=== PATIENT | male | born 1975 | race Caucasian/White ===

== ENCOUNTER 2018-09-18 00:17 | Inpatient (IN) | payer MEDICAID ==
[~2018-09-18] VITALS: Ht 170.2 cm; Wt 100.1 kg
[2018-09-18] VITALS (33 sets, daily range): BP systolic 100–126; BP diastolic 50–84; PULSE 100–136; RESP 16–26; Ht 170.2 cm; Wt 100.1 kg
[~2018-09-18 00:17] MED LIST: BENZ-6 PO; GUAI120S26 PO
[2018-09-18] MEDS ORDERED: SODIUM CHLORIDE 0.9% 1L BAG IV* STA (00:27)
[2018-09-18] MEDS ORDERED: ACETAMINOPHEN 325 MG TAB PO STA (00:27)
[2018-09-18] MEDS ORDERED: CEFEPIME 2GM/50 ML (PMX) 50 ML IVPB STA (01:36)
[2018-09-18] MEDS ORDERED: VANCOMYCIN 1 GM (PMX) 250 ML IVPB ONE (02:00)
[2018-09-18] MEDS ORDERED: ONDANSETRON 4 MG INJ IV STA (02:27)
[2018-09-18] MEDS ORDERED: morphine 4 MG/ML VIAL IV STA (02:27)
--- NOTE | 2018-09-18 03:22 | ERD ---
ER Documentation Chief Complaint Chief Complaint nausea with vomiting x 30 min HPI This is a 43-year-old male coming with nausea vomiting and right lower quadrant abdominal pain sudden onset for 30 minutes. Pain is mild to moderate intensity. He also complains of fevers and chills. One episode of vomiting which is nonbilious nonbloody. No other current complaints. ROS All systems reviewed and are negative except as per history of present illness. Medications Home Meds Active Scripts Benzonatate* (Tessalon Perle*) 100 Mg Capsule, 100 MG PO Q8H PRN for COUGH, #20 CAP Prov:NASIM MIGUEL PA-C 07/08/16 Kqvvkitkzbb-N-Ezzgtzyixv Hb* (Guaifenesin* DM Syrup) 120 Ml Syrup, 10 ML PO Q4H PRN for COUGH, #120 ML Prov:NASIM MIGUEL PA-C 07/08/16 Allergies Allergies: Coded Allergies: No Known Allergy (Unverified , 07/07/16) PMhx/Soc Medical and Surgical Hx: pt denies Medical Hx, pt denies Surgical Hx Hx Alcohol Use: No Hx Substance Use: No Hx Tobacco Use: No Smoking Status: Never smoker Physical Exam Vitals Vital Signs Date Temp Pulse Resp B/P (MAP) Pulse Ox O2 O2 Flow FiO2 Time Delivery Rate 09/18/18 98.9 124 25 117/72 95 Room Air 02:58 (87) 09/18/18 98.9 125 20 124/67 95 Room Air 01:48 (86) 09/18/18 98.9 143 28 127/83 95 Room Air 00:53 (98) 09/18/18 39.6 00:52 09/18/18 103.3 131 18 161/83 98 00:21 (109) Physical Exam Const: No acute distress Head: Atraumatic Eyes: Normal Conjunctiva ENT: Normal External Ears, Nose and Mouth. Neck: Full range of motion. No meningismus. Resp: Clear to auscultation bilaterally Cardio: Regular rate and rhythm, no murmurs Abd: Soft, non tender, non distended. Normal bowel sounds Skin: No petechiae or rashes Back: No midline or flank tenderness Ext: No cyanosis, or edema Neur: Awake and alert Psych: Normal Mood and Affect Result Diagram: 09/18/184809/18/1848 Results 24 hrs Laboratory Tests Test 09/18/18 00:48 09/18/18 00:49 Urine Color YELLOW Urine Clarity CLEAR Urine pH 5.0 Urine Specific [place] 1.037 Urine Ketones TRACE mg/dL Urine Nitrite NEGATIVE mg/dL Urine Bilirubin NEGATIVE mg/dL Urine Urobilinogen NEGATIVE mg/dL Urine Leukocyte Esterase NEGATIVE Kashif/ul Urine Hemoglobin NEGATIVE mg/dL Urine Glucose 3+ mg/dL Urine Total Protein NEGATIVE mg/dl White Blood Count 5.6 10^3/ul Red Blood Count 5.32 10^6/ul Hemoglobin 15.7 g/dl Hematocrit 45.1 % Mean Corpuscular Volume 84.8 fl Mean Corpuscular Hemoglobin 29.5 pg Mean Corpuscular Hemoglobin Concent 34.8 g/dl Red Cell Distribution Width 12.5 % Platelet Count 273 10^3/UL Mean Platelet Volume 9.1 fl Immature Granulocytes % 0.200 % Neutrophils % 80.4 % Lymphocytes % 18.3 % Monocytes % 0.4 % Eosinophils % 0.2 % Basophils % 0.5 % Nucleated Red Blood Cells % 0.0 /100WBC Immature Granulocytes # 0.010 10^3/ul Neutrophils # 4.5 10^3/ul Lymphocytes # 1.0 10^3/ul Monocytes # 0.0 10^3/ul Eosinophils # 0.0 10^3/ul Basophils # 0.0 10^3/ul Nucleated Red Blood Cells # 0.0 10^3/ul Prothrombin Time 13.4 Sec Prothrombin Time Ratio 1.0 INR International Normalized Ratio 1.01 Activated Partial Thromboplast Time 26.6 Sec Sodium Level 141 mmol/L Potassium Level 3.6 mmol/L Chloride Level 99 mmol/L Carbon Dioxide Level 26 mmol/L Anion Gap 16 Blood Urea Nitrogen 14 mg/dl Creatinine 0.95 mg/dl Est Glomerular Filtrat Rate mL/min > 60 mL/min Glucose Level 300 mg/dl Lactic Acid Level 4.7 mmol/L Calcium Level 9.5 mg/dl Total Bilirubin 0.7 mg/dl Direct Bilirubin 0.00 mg/dl Indirect Bilirubin 0.7 mg/dl Aspartate Amino Transf (AST/SGOT) 23 IU/L Alanine Aminotransferase (ALT/SGPT) 29 IU/L Alkaline Phosphatase 112 IU/L Troponin I < 0.012 ng/ml Total Protein 8.6 g/dl Albumin 4.6 g/dl Globulin 4.00 g/dl Albumin/Globulin Ratio 1.15 Lipase 65 U/L Current Medications Medications Dose Sig/Jody Start Time Status Last (Trade) Ordered Route PRN Stop Time Admin Dose Reason Admin Sodium 2,980 ml BOLUS OVER 2 09/18/18 DC 09/18/18 Chloride HOURS STAT 00:27 09/18/18 00:53 (NS) IV* 00:28 650 mg ONCE STAT 09/18/18 DC 09/18/18 Acetaminophen PO 00:27 09/18/18 00:52 (Tylenol 00:28 Tab) Cefepime HCl 50 ml @ ONCE STAT 09/18/18 DC 09/18/18 100 mls/hr IVPB 01:36 09/18/18 01:43 02:05 Vancomycin 250 ml @ ONCE ONCE 09/18/18 09/18/18 HCl 125 mls/hr IVPB 02:00 09/18/18 02:02 03:59 Morphine 4 mg ONCE STAT 09/18/18 DC 09/18/18 Sulfate IV 02:27 09/18/18 02:38 (morphine) 02:28 Ondansetron 4 mg ONCE STAT 09/18/18 DC 09/18/18 HCl (Zofran IV 02:27 09/18/18 02:37 Inj) 02:28 Procedures/MDM EKG: Rate/Rhythm: Is tachycardia QRS, ST, T-waves: [No changes consistent w/ acute ischemia] Impression: Sinus tachycardia Chest X-ray 1V Interpreted by me: Soft Tissue: No acute abnormalities Bones: No acute abnormalities Mediastinum/Cardiac Silhouette/Lungs: [No acute abnormalities] Patient's infectious symptoms have not stabilized and the patient is at risk of rapid decompensation. The patient will be admitted for careful hydration, antibiotic therapy, and infectious source control. Severe Sepsis Assessment: Infectious Source: Appendicitis End organ damage indicated by: [Lactate > 2.0 mmol/L Severe Sepsis Managment: Blood Cultures X 2 before broad spectrum antibiotics initiated within 3 hours of recognition. 30 ml/kg NS bolus Completed Initial Lactate: 4.1 Repeat Lactate pending Critical Care: Time: 45 minutes, independent of any separately billable procedural time Treatments/Evaluations: Emergent fluid management, while maintaining close respiratory support. Immediate broad spectrum antibiotic therapy. Simultaneous assessment for possible sources in order to direct therapy. Consideration for invasive and chemical support to prevent respiratory or cardiac collapse. Septic Shock Assessment (1 hour post 30 ml/kg fluid bolus): Hypotension (SBP < 90 or 40 mmHg drop, MAP < 65): [No] Lactic acid > 4.0 yes Perfusion Reassessment for Septic Shock: 99.3, pulse 117, respiratory rate 18, blood pressure 116/74 Heart Exam: [Tachycardic] Lung Exam: [No Crackles] Capillary Refill: [Delayed] Peripheral Pulses: [Radially present] Skin: [Mottled, pale] Patient also has evidence of hyperglycemia, the patient does not follow regularly with a physician. This calls into question whether it has lactic acidosis is also somewhat secondary to his severe hyperglycemia, however patient started on broad-spectrum antibiotics and given a 30/kg fluid bolus here in the department. Admitting team made aware. Dr. Schaefer consulted for surgery. Accepting Care Team: Current data and ongoing care discussed. Time: 2 AM Primary Provider: Hospitalist Consulting: Dr. Schaefer Outstanding Data: none Departure Diagnosis: Primary Impression: Nausea and vomiting Vomiting type: unspecified Vomiting Intractability: unspecified Qualified Codes: R11.2 - Nausea with vomiting, unspecified Additional Impressions: Sepsis Sepsis type: sepsis due to unspecified organism Qualified Codes: A41.9 - Sepsis, unspecified organism Appendicitis Appendicitis type: unspecified Qualified Codes: K37 - Unspecified samy endicitis Hyperglycemia Condition: Serious TENA HAGEN Sep 18, 2018 03:22
[2018-09-18] MEDS ORDERED: SOD CHLORIDE 0.9% 1,000 ML IV ONE ×3 (03:30→08:30)
[2018-09-18] MEDS ORDERED: HYDROmorphONE 0.5 MG/0.5 ML SYG IV STA (05:17)
[2018-09-18] MEDS ORDERED: ALBUTEROL/IPRATROPIUM (NEB) 3 ML AMP HHN PRN (06:30)
[2018-09-18] MEDS ORDERED: ONDANSETRON 4 MG INJ IV PRN ×3 (06:30→14:30)
[2018-09-18] MEDS ORDERED: NACL 0.9% 3 ML SYG IV SCH (06:30)
[2018-09-18] MEDS ORDERED: morphine 2 MG INJ IV PRN ×2 (06:30→14:00)
--- NOTE | 2018-09-18 06:30 | HP ---
Date/Time of Note Date/Time of Note DATE: 09/18/18 TIME: 06:28 Assessment/Plan VTE Prophylaxis SCD applied (from Nsg): Yes Pharmacological prophylaxis: NA/contraindicated Pharm contraindication: other (Awaiting surgical evaluation for appendicitis) Lines/Catheters IV Catheter Type (from Nrsg): Saline Lock Assessment/Plan Assessment/Plan 1. Acute appendicitis -Keep n.p.o. with IV fluid -IV antibiotic -Pain management -Awaiting surgical eval 2. sepsis: 2/2 above -IV abx, IVF -f/u culture results 3. Hyperglycemia: Likely new onset diabetes -Check A1c -Insulin while in-house 4. Obesity with a BMI of 34: Weight reduction advised Result Diagram: 09/18/189 09/18/189 Results 24hrs Laboratory Tests Test 09/18/18 00:48 09/18/18 00:49 09/18/18 03:00 09/18/18 04:47 Urine Color YELLOW Urine Clarity CLEAR Urine pH 5.0 Urine Specific [place] 1.037 H Urine Ketones TRACE A Urine Nitrite NEGATIVE Urine Bilirubin NEGATIVE Urine Urobilinogen NEGATIVE Urine Leukocyte Esterase NEGATIVE Urine Hemoglobin NEGATIVE Urine Glucose 3+ H Urine Total Protein NEGATIVE White Blood Count 5.6 Red Blood Count 5.32 Hemoglobin 15.7 Hematocrit 45.1 Mean Corpuscular Volume 84.8 Mean Corpuscular 29.5 Hemoglobin Mean Corpuscular 34.8 Hemoglobin Concent Red Cell Distribution 12.5 Width Platelet Count 273 Mean Platelet Volume 9.1 Immature Granulocytes % 0.200 Neutrophils % 80.4 H Lymphocytes % 18.3 Monocytes % 0.4 Eosinophils % 0.2 Basophils % 0.5 Nucleated Red Blood 0.0 Cells % Immature Granulocytes # 0.010 Neutrophils # 4.5 Lymphocytes # 1.0 Monocytes # 0.0 L Eosinophils # 0.0 Basophils # 0.0 Nucleated Red Blood 0.0 Cells # Prothrombin Time 13.4 Prothrombin Time Ratio 1.0 INR International 1.01 Normalized Ratio Activated 26.6 Partial Thromboplast Time Sodium Level 141 Potassium Level 3.6 Chloride Level 99 Carbon Dioxide Level 26 Anion Gap 16 H Blood Urea Nitrogen 14 Creatinine 0.95 Est Glomerular Filtrat > 60 Rate mL/min Glucose Level 300 H Lactic Acid Level 4.7 *H 2.7 *H 1.7 Calcium Level 9.5 Total Bilirubin 0.7 Direct Bilirubin 0.00 Indirect Bilirubin 0.7 Aspartate Amino 23 Transf (AST/SGOT) Alanine 29 Aminotransferase (ALT/SG PT) Alkaline Phosphatase 112 Troponin I < 0.012 Total Protein 8.6 H Albumin 4.6 Globulin 4.00 H Albumin/Globulin Ratio 1.15 Lipase 65 HPI/ROS Admit Date/Time Admit Date/Time Hx of Present Illness This is a 43-year-old male with no significant past medical history who presents to the ER complaining of abdominal pain. Pain is mainly localized in the right lower quadrant area with associated nausea and nonbloody nonbilious vomiting. Pain started about 7 hours prior to arrival to the ER. Denied similar symptoms in the past. When he presented to the ER, CT abdomen/pelvis with the findings of acute appendicitis. PMH/Family/Social Past Medical History Medical History: other (See HPI) Medications Current Medications Sodium Chloride 1,000 ml @ 1,000 mls/hr Q1H ONCE IV Last administered on 09/18/18at 05:21; Admin Dose 1,000 MLS/HR; Start 09/18/18 at 05:30; Stop 09/18/18 at 06:29 Coded Allergies: No Known Allergy (Unverified , 09/18/18) Past Surgical History Past Surgical Hx: other (See HPI) Family History Significant Family History: no pertinent family hx Social History Alcohol Use: occasionally Smoking Status: Never smoker Drug Use: none Exam/Review of Systems Vital Signs Vitals Vital Signs Date Temp Pulse Resp B/P (MAP) Pulse Ox O2 O2 Flow FiO2 Time Delivery Rate 09/18/18 98.7 128 21 111/64 95 Room Air 06:10 (80) Exam Constitutional: other (No acute distress) Head: normocephalic, atraumatic Eyes: EOMI, PERRL Respiratory: clear to auscultation, normal air movement Cardiovascular: regular rate and rhythm, nl pulses Gastrointestinal: soft, other (Right lower quadrant tenderness. Some guarding with deep palpation. No rigidity, no rebound tenderness) Extremities: normal pulses TENA MARIE MD Sep 18, 2018 06:30
[2018-09-18] MEDS ORDERED: NEOSTIGMINE 10 MG INJ ONE (07:00)
[2018-09-18] MEDS ORDERED: DEXTROSE 50% 50 ML SYRINGE IV PRN ×2 (07:00)
[2018-09-18] MEDS ORDERED: GLUCOSE GEL 15 GRAM TUBE PO PRN ×2 (07:00)
[2018-09-18] MEDS ORDERED: LIDOCAINE 2% (SDV) 5 ML INJ ONE (07:00)
[2018-09-18] MEDS ORDERED: GLUCOSE GEL 15 GRAM TUBE BUCCAL PRN (07:00)
[2018-09-18] MEDS ORDERED: GLUCAGON 1 MG INJ IM PRN (07:00)
[2018-09-18] MEDS ORDERED: GLYCOPYRROLATE 0.4 MG INJ ONE (07:00)
[2018-09-18] MEDS: PIPER-TAZO 3.375 GM IV (PMX) 100 ML IVPB SCH ×5 (07:20→16:28)
[2018-09-18] MEDS ORDERED: IBUP200C11 PO (07:35)
[2018-09-18] MEDS: DEXTROSE 5%-0.45% NACL 1,000 ML IV SCH ×2 (09:28→14:58)
[2018-09-18] MEDS: INSULIN ASPART [NOVOLOG] 3 ML PEN SC SCH ×4 (09:31→21:25)
[2018-09-18] MEDS: INSULIN DETEMIR [LEVEMIR] (100 UNITS/ML) SYG SC SCH (09:31)
--- NOTE | 2018-09-18 11:49 | QN ---
Documentation Comment 43-year-old male with no past medical history, admitted with acute appendicitis. Patient is going to OR for lap versus open appendectomy. Postoperative diet, anticoagulation, antibiotic course per surgery recommendations. The patient will be treated with insulin for underlying hyperglycemia, likely secondary to sepsis versus new onset diabetes which we will rule out. Case discussed with Dr. Alba. KORIN JAMES NP Sep 18, 2018 11:49
--- NOTE | 2018-09-18 11:59 | PREAC ---
Date/Time of Note Date/Time of Note DATE: 09/18/18 TIME: 11:56 Anesthesia Eval and Record Evaluation Time Pre-Procedure Interview DATE: 09/18/18 TIME: 11:56 Age 43 Sex male NPO: 8 hrs Preoperative diagnosis Appendicitis Planned procedure Lap Appy Past Medical History Past Medical History: Includes Endo: Diabetes (266, 931 4 unit regular insulin) GI: Obesity Surgery & Anesthesia Issues No known issue (no family history) Meds Anticoagulation: No Beta Herminio within 24 hr: No Reason Beta Herminio not given: Pt. not on B-Herminio Reported Medications Ibuprofen* (Advil*) 200 Mg Capsule, 200 MG PO Q6H PRN for PAIN, CAP 09/18/18 Discontinued Scripts Benzonatate* (Tessalon Perle*) 100 Mg Capsule, 100 MG PO Q8H PRN for COUGH, #20 CAP Prov:NASIM MIGUEL PA-C 07/08/16 Ftwbrlxoqfx-Q-Axkaqjtlfu Hb* (Guaifenesin* DM Syrup) 120 Ml Syrup, 10 ML PO Q4H PRN for COUGH, #120 ML Prov:NASIM MIGUEL PA-C 07/08/16 Current Medications Dextrose/Sodium Chloride 1,000 ml @ 100 mls/hr Q10H IV Last administered on 09/18/18at 09:28; Admin Dose 100 MLS/HR; Start 09/18/18 at 06:24 IV Flush (NS 3 ml) 3 ml PER PROTOCOL IV ; Start 09/18/18 at 06:30 Ondansetron HCl (Zofran Inj) 4 mg Q6H PRN IV NAUSEA/VOMITING Last administered on 09/18/18at 09:30; Admin Dose 4 MG; Start 09/18/18 at 06:30 Morphine Sulfate (morphine) 2 mg Q4H PRN IV .SEVERE PAIN 7-10; Start 09/18/18 at 06:30 Albuterol/ Ipratropium (Duoneb) 3 ml Q2H RESP THERAPY PRN HHN SHORTNESS OF BREATH; Start 09/18/18 at 06:30 Diagnostic Test (Pha) (Accu-Chek) 1 ea 02 XX ; Start 09/19/18 at 02:00 Insulin Detemir (Levemir) 12 units DAILY@0800 SC Last administered on 09/18/18at 09:31; Admin Dose 12 UNITS; Start 09/18/18 at 08:00 Insulin Aspart (Novolog Insulin Pen) NOVOLOG *MILD* ALGORITHM WITH MEALS BEDTIME SC Last administered on 09/18/18at 09:31; Admin Dose 4 UNIT; Start 09/18/18 at 07:55 Piperacillin Sod/ Tazobactam Sod 100 ml @ 200 mls/hr Q6H IVPB Last administered on 09/18/18at 07:20; Admin Dose 200 MLS/HR; Start 09/18/18 at 06:30 Miscellaneous Information 1 ea NOTE XX ; Start 09/18/18 at 07:00 Glucose (Glutose) 15 gm Q15M PRN PO DECREASED GLUCOSE; Start 09/18/18 at 07:00 Glucose (Glutose) 22.5 gm Q15M PRN PO DECREASED GLUCOSE; Start 09/18/18 at 07:00 Dextrose (D50w Syringe) 25 ml Q15M PRN IV DECREASED GLUCOSE; Start 09/18/18 at 07:00 Dextrose (D50w Syringe) 50 ml Q15M PRN IV DECREASED GLUCOSE; Start 09/18/18 at 07:00 Glucagon (Glucagen) 1 mg Q15M PRN IM DECREASED GLUCOSE; Start 09/18/18 at 07:00 Glucose (Glutose) 15 gm Q15M PRN BUCCAL DECREASED GLUCOSE; Start 09/18/18 at 07:00 Influenza Virus Vaccine Quadrival (Fluzone) 0.5 ml ONCE ONCE IM* ; Start 09/19/18 at 10:00; Stop 09/19/18 at 10:01 Meds reviewed: Yes Allergies Coded Allergies: No Known Allergy (Unverified , 09/18/18) Allergies Reviewed: No Labs/Studies Labs Reviewed: Reviewed by anesthesiologist Result Diagram: 09/18/18 0049 09/18/18 0049 Laboratory Tests 09/18/18 00:49 test: N/A Pre-procedure Exam Last vitals Vital Signs Date Temp Pulse Resp B/P (MAP) Pulse Ox O2 O2 Flow FiO2 Time Delivery Rate 09/18/18 98.0 117 18 121/68 97 11:17 (85) 09/18/18 Nasal 2.0 08:20 Cannula Airway: Adequate mouth opening, Adequate thyromental dist Mallampati: Mallampati III Teeth: Abnormal (multiple small chips on top teeth) Lung: Normal Heart: Normal ASA Physical Status ASA physical status: 2 Emergency: E Planned Anesthetic General/MAC: ETT Pre-operative Attestations Prior to commencing anesthesia and surgery, the patient was re-evaluated, there was verification of: *The patient's identity *The results of appropriate recent lab work and preoperative vital signs *The above evaluation not changing prior to induction *Anesthetic plan, risk benefits, alternative and complications discussed with patient/family; questions answered; patient/family understands, accepts and wishes to proceed. JIMMY KYLE FOREIGN COLLECTION CLERK Sep 18, 2018 11:59
--- NOTE | 2018-09-18 12:08 | CONS ---
Assessment/Plan Assessment/Plan Assessment/Plan (Daily) Acute appendicitis Plan: Laparoscopic appendectomy, possible open. I have discussed the procedure, outcomes alternatives and risks in detail with the patient who has an excellent understanding of the nature of his problem and agrees to the proposed plan of therapy as outlined. Consultation Date/Type/Reason Admit Date/Time Date of Consultation: Sep 18, 2018 Type of Consult General surgery Reason for Consultation Acute appendicitis Date/Time of Note DATE: 09/18/18 TIME: 12:05 Hx of Present Illness The patient is an otherwise healthy 43-year-old male who presents with a one day history of abdominal pain which intensified in severity than localized to the right lower quadrant. In the emergency room he was noted to have a tender right lower quadrant and a CT compatible with acute appendicitis. The patient was admitted and surgical consultation was requested in that regard. Of note is the fact that the patient was noted to have an elevated glucose and may have early onset diabetes. The patient has had no fevers, chills or systemic symptoms. Constitutional: no complaints Eyes: no complaints ENT: no complaints Respiratory: no complaints Cardiovascular: no complaints Gastrointestinal: pain, nausea Genitourinary: no complaints Musculoskeletal: no complaints Skin: no complaints Neurologic: no complaints, dizziness Endocrine: no complaints Past Medical History Medical History: other (See HPI) Home Meds Reported Medications Ibuprofen* (Advil*) 200 Mg Capsule, 200 MG PO Q6H PRN for PAIN, CAP 09/18/18 Discontinued Scripts Benzonatate* (Tessalon Perle*) 100 Mg Capsule, 100 MG PO Q8H PRN for COUGH, #20 CAP Prov:NASIM MIGUEL PA-C 07/08/16 Nhhipokasam-C-Zbjeljsimn Hb* (Guaifenesin* DM Syrup) 120 Ml Syrup, 10 ML PO Q4H PRN for COUGH, #120 ML Prov:NASIM MIGUEL PA-C 07/08/16 Medications Current Medications Dextrose/Sodium Chloride 1,000 ml @ 100 mls/hr Q10H IV Last administered on 09/18/18at 09:28; Admin Dose 100 MLS/HR; Start 09/18/18 at 06:24 IV Flush (NS 3 ml) 3 ml PER PROTOCOL IV ; Start 09/18/18 at 06:30 Ondansetron HCl (Zofran Inj) 4 mg Q6H PRN IV NAUSEA/VOMITING Last administered on 09/18/18at 09:30; Admin Dose 4 MG; Start 09/18/18 at 06:30 Morphine Sulfate (morphine) 2 mg Q4H PRN IV .SEVERE PAIN 7-10; Start 09/18/18 at 06:30 Albuterol/ Ipratropium (Duoneb) 3 ml Q2H RESP THERAPY PRN HHN SHORTNESS OF BREATH; Start 09/18/18 at 06:30 Diagnostic Test (Pha) (Accu-Chek) 1 ea 02 XX ; Start 09/19/18 at 02:00 Insulin Detemir (Levemir) 12 units DAILY@0800 SC Last administered on 09/18/18at 09:31; Admin Dose 12 UNITS; Start 09/18/18 at 08:00 Insulin Aspart (Novolog Insulin Pen) NOVOLOG *MILD* ALGORITHM WITH MEALS BEDTIME SC Last administered on 09/18/18at 09:31; Admin Dose 4 UNIT; Start 09/18/18 at 07:55 Piperacillin Sod/ Tazobactam Sod 100 ml @ 200 mls/hr Q6H IVPB Last administered on 09/18/18at 07:20; Admin Dose 200 MLS/HR; Start 09/18/18 at 06:30 Miscellaneous Information 1 ea NOTE XX ; Start 09/18/18 at 07:00 Glucose (Glutose) 15 gm Q15M PRN PO DECREASED GLUCOSE; Start 09/18/18 at 07:00 Glucose (Glutose) 22.5 gm Q15M PRN PO DECREASED GLUCOSE; Start 09/18/18 at 07:00 Dextrose (D50w Syringe) 25 ml Q15M PRN IV DECREASED GLUCOSE; Start 09/18/18 at 07:00 Dextrose (D50w Syringe) 50 ml Q15M PRN IV DECREASED GLUCOSE; Start 09/18/18 at 07:00 Glucagon (Glucagen) 1 mg Q15M PRN IM DECREASED GLUCOSE; Start 09/18/18 at 07:00 Glucose (Glutose) 15 gm Q15M PRN BUCCAL DECREASED GLUCOSE; Start 09/18/18 at 07:00 Influenza Virus Vaccine Quadrival (Fluzone) 0.5 ml ONCE ONCE IM* ; Start 09/19/18 at 10:00; Stop 09/19/18 at 10:01 Allergies: Coded Allergies: No Known Allergy (Unverified , 09/18/18) Past Surgical History Past Surgical Hx: other (See HPI) Family History Significant Family History: no pertinent family hx Social History Alcohol Use: occasionally Smoking Status: Never smoker Drug Use: none Exam/Review of Systems Exam Vitals Vital Signs Date Temp Pulse Resp B/P (MAP) Pulse Ox O2 O2 Flow FiO2 Time Delivery Rate 09/18/18 Nasal 2.0 11:49 Cannula 09/18/18 98.0 117 18 121/68 97 11:17 (85) Constitutional: alert, oriented, other (Speaks only [place]) Psych: no complaints Head: normocephalic Eyes: nl conjunctiva ENMT: nl external ears & nose Neck: supple Respiratory: clear to auscultation, crackles/rales Gastrointestinal: tender (The right lower quadrant with slight guarding but no rebound) Musculoskeletal: nl extremities to inspection Extremities: normal pulses Neurological: CORK TIPPER II-XII intact Skin: nl turgor Results Result Diagram: 09/18/18 0049 09/18/18 0049 Results 24hrs Laboratory Tests Test 09/18/18 00:48 09/18/18 00:49 09/18/18 03:00 09/18/18 04:47 Urine Color YELLOW Urine Clarity CLEAR Urine pH 5.0 Urine Specific [place] 1.037 H Urine Ketones TRACE A Urine Nitrite NEGATIVE Urine Bilirubin NEGATIVE Urine Urobilinogen NEGATIVE Urine Leukocyte Esterase NEGATIVE Urine Hemoglobin NEGATIVE Urine Glucose 3+ H Urine Total Protein NEGATIVE White Blood Count 5.6 Red Blood Count 5.32 Hemoglobin 15.7 Hematocrit 45.1 Mean Corpuscular Volume 84.8 Mean Corpuscular 29.5 Hemoglobin Mean Corpuscular 34.8 Hemoglobin Concent Red Cell Distribution 12.5 Width Platelet Count 273 Mean Platelet Volume 9.1 Immature Granulocytes % 0.200 Neutrophils % 80.4 H Lymphocytes % 18.3 Monocytes % 0.4 Eosinophils % 0.2 Basophils % 0.5 Nucleated Red Blood 0.0 Cells % Immature Granulocytes # 0.010 Neutrophils # 4.5 Lymphocytes # 1.0 Monocytes # 0.0 L Eosinophils # 0.0 Basophils # 0.0 Nucleated Red Blood 0.0 Cells # Prothrombin Time 13.4 Prothrombin Time Ratio 1.0 INR International 1.01 Normalized Ratio Activated 26.6 Partial Thromboplast Time Sodium Level 141 Potassium Level 3.6 Chloride Level 99 Carbon Dioxide Level 26 Anion Gap 16 H Blood Urea Nitrogen 14 Creatinine 0.95 Est Glomerular Filtrat > 60 Rate mL/min Glucose Level 300 H Lactic Acid Level 4.7 *H 2.7 *H 1.7 Calcium Level 9.5 Total Bilirubin 0.7 Direct Bilirubin 0.00 Indirect Bilirubin 0.7 Aspartate Amino 23 Transf (AST/SGOT) Alanine 29 Aminotransferase (ALT/SG PT) Alkaline Phosphatase 112 Troponin I < 0.012 Total Protein 8.6 H Albumin 4.6 Globulin 4.00 H Albumin/Globulin Ratio 1.15 Lipase 65 Test 09/18/18 09:23 09/18/18 11:59 Bedside Glucose 266 H 246 H Medications Medication Current Medications Dextrose/Sodium Chloride 1,000 ml @ 100 mls/hr Q10H IV Last administered on 09/18/18 09:28; Admin Dose 100 MLS/HR; Start 09/18/18 at 06:24 IV Flush (NS 3 ml) 3 ml PER PROTOCOL IV ; Start 09/18/18 at 06:30 Ondansetron HCl (Zofran Inj) 4 mg Q6H PRN IV NAUSEA/VOMITING Last administered on 09/18/18 09:30; Admin Dose 4 MG; Start 09/18/18 at 06:30 Morphine Sulfate (morphine) 2 mg Q4H PRN IV .SEVERE PAIN 7-10; Start 09/18/18 at 06:30 Albuterol/ Ipratropium (Duoneb) 3 ml Q2H RESP THERAPY PRN HHN SHORTNESS OF BREATH; Start 09/18/18 at 06:30 Diagnostic Test (Pha) (Accu-Chek) 1 ea 02 XX ; Start 09/19/18 at 02:00 Insulin Detemir (Levemir) 12 units DAILY@0800 SC Last administered on 09/18/18 09:31; Admin Dose 12 UNITS; Start 09/18/18 at 08:00 Insulin Aspart (Novolog Insulin Pen) NOVOLOG *MILD* ALGORITHM WITH MEALS BEDTIME SC Last administered on 09/18/18 09:31; Admin Dose 4 UNIT; Start 09/18 at 07:55 Piperacillin Sod/ Tazobactam Sod 100 ml @ 200 mls/hr Q6H IVPB Last administered on 09/18/18 07:20; Admin Dose 200 MLS/HR; Start 09/18/18 at 06:30 Miscellaneous Information 1 ea NOTE XX ; Start 09/18/18 at 07:00 Glucose (Glutose) 15 gm Q15M PRN PO DECREASED GLUCOSE; Start 09/18/18 at 07:00 Glucose (Glutose) 22.5 gm Q15M PRN PO DECREASED GLUCOSE; Start 09/18/18 at 07:00 Dextrose (D50w Syringe) 25 ml Q15M PRN IV DECREASED GLUCOSE; Start 09/18/18 at 07:00 Dextrose (D50w Syringe) 50 ml Q15M PRN IV DECREASED GLUCOSE; Start 09/18/18 at 07:00 Glucagon (Glucagen) 1 mg Q15M PRN IM DECREASED GLUCOSE; Start 09/18/18 at 07:00 Glucose (Glutose) 15 gm Q15M PRN BUCCAL DECREASED GLUCOSE; Start 09/18/18 at 07:00 Influenza Virus Vaccine Quadrival (Fluzone) 0.5 ml ONCE ONCE IM* ; Start 09/19/18 at 10:00; Stop 09/19/18 at 10:01 NINA KAYE MD Sep 18, 2018 12:08
[2018-09-18] MEDS ORDERED: PHENYLephrine (100 MCG/ML) 5ML SYG ONE (12:09)
[2018-09-18] MEDS ORDERED: PROPOFOL 20 ML ONE (12:09)
[2018-09-18] MEDS ORDERED: METOCLOPRAMIDE 10 MG INJ ONE (12:09)
[2018-09-18] MEDS ORDERED: SUCCINYLCHOLINE CHLORIDE 100 MG/5 ML SYG IV ONE (12:09)
[2018-09-18] MEDS ORDERED: FAMOTIDINE 20 MG INJ ONE (12:09)
[2018-09-18] MEDS ORDERED: ROCURONIUM 50 MG INJ ONE (12:09)
[2018-09-18] MEDS ORDERED: BUPIVACAINE 0.5%/EPI (SDV) 30 ML INJ ONE (12:38)
[2018-09-18] MEDS ORDERED: ESMOLOL 10 ML ONE (12:48)
[2018-09-18] MEDS ORDERED: ONDANSETRON 4 MG INJ ONE (13:29)
--- NOTE | 2018-09-18 13:57 | OPR ---
Date/Time of Note Date/Time of Note DATE: 09/18/18 TIME: 13:52 Operative Report Procedure Date: Sep 18, 2018 Preoperative Diagnosis Acute appendicitis Postoperative Diagnosis Acute retrocecal appendicitis in the right upper quadrant with localized peritonitis Operation/Procedure Performed 1. Laparoscopy 2. Open appendectomy Surgeon Sharad Main MD Analytic Manager None Anesthesia Type: general Anesthesiologist: JIMMY KYLE CRNA Estimated Blood Loss: 10 - 50 ml's Transfusion none Specimen Appendix Grafts/Implants none Tubes/Drains None Complications none Pt Condition Post Procedure: stable Disposition: PACU Indications Acute appendicitis Procedure Description After satisfactory general endotracheal anesthesia was achieved, the abdomen was prepped and draped in the usual fashion. The abdomen was insufflated with carbon dioxide through an umbilical Veress needle to 15 mmHg pressure. The Veress needle was removed and the umbilical incision extended to 5 mm through which a 5 mm trocar was placed. A 5 mm 0 degree lens was placed. Laparoscopy showed purulent fluid in the right lateral abdomen. The appendix was not visualized. Under direct visualization a 5 mm suprapubic trocar was placed as well as a 12 mm left lower quadrant trocar. At cecum was mobilized the appendix was fused in the retrocecal position in the right upper quadrant. No further dissection could be successfully done laparoscopically. It was elected to convert to open. 2 fascial sutures of 0 Vicryl were placed at the 12 mm port site with the assistance of a needle closure device. The abdomen was then desufflated and all trochars were removed. The fascial suture was tied down. Next a transverse incision was made in the upper right lateral abdomen down to the level of the peritoneum which was opened for the full length of the skin incision. The cecum was mobilized into the wound and within its retrocecal appendix. The retrocecal appendix was fused to surrounding tissues via localized peritonitis it was able to be dissected to the level of the appendiceal cecal junction. A staple was placed across the base of the cecum, this connecting the appendix from the cecum. A second firing of the vascular stapler across the mesoappendix fully freeing the appendix which was submitted. Hemostasis was total irrigant returned clear. The cecum was replaced into the abdomen. The peritoneum and posterior fascia were closed with running #1 Vicryl. Anterior rectus sheath and fascia were closed with running #2 Vicryl. The skin punctures were infiltrated with 30 cc of 0.5 percent Marcaine and closed with alberto. The umbilical incision was closed with a [id number] suture of 3-0 nylon. Sponge, needle, and instrument counts were reported as correct x2. SHARAD MAIN MD Sep 18, 2018 13:57
[2018-09-18] MEDS ORDERED: OXYCODONE/ACETAMINOPHEN (5/325) TAB PO PRN ×4 (14:00→14:30)
--- NOTE | 2018-09-18 14:13 | PAC ---
Date/Time of Note Date/Time of Note DATE: 09/18/18 TIME: 14:13 Post-Anesthesia Notes Post-Anesthesia Note Last documented vital signs Vital Signs Date Temp Pulse Resp B/P (MAP) Pulse Ox O2 O2 Flow FiO2 Time Delivery Rate 09/18/18 98.3 14:11 09/18/18 122 12:09 09/18/18 Nasal 2.0 11:49 Cannula 09/18/18 18 121/68 97 11:17 (85) Activity: WNL Respiratory function: WNL Cardiovascular function: WNL Mental status: Baseline Pain reasonably controlled: Yes Hydration appropriate: Yes Nausea/Vomiting absent: Yes JIMMY KYLE CRNA Sep 18, 2018 14:13
[2018-09-18] MEDS: HYDROmorphONE 1 MG/5 ML IV SYRINGE IV PRN ×3 (14:26→14:39)
[2018-09-18] MEDS ORDERED: LABETALOL HCL 20MG INJ IV PRN (14:30)
[2018-09-18] MEDS ORDERED: FENTAnyl 50 MCG/ML VIAL IV PRN ×2 (14:30)
[2018-09-18] MEDS ORDERED: MEPERIDINE 25 MG INJ IV PRN (14:30)
[2018-09-18] MEDS ORDERED: METOPROLOL 5 MG INJ ONE (15:12)
[2018-09-18] MEDS ORDERED: METOPROLOL 5 MG INJ IV ONE (15:30)
[2018-09-18] MEDS: SOD CHLORIDE 0.9% 1,000 ML IV SCH (16:03)
[2018-09-19] VITALS (10 sets, daily range): BP systolic 120–141; BP diastolic 76–82; PULSE 97–114; RESP 18–19
[2018-09-19] MEDS: PIPER-TAZO 3.375 GM IV (PMX) 100 ML IVPB SCH ×4 (01:11→17:03)
[2018-09-19] MEDS: SOD CHLORIDE 0.9% 1,000 ML IV SCH ×3 (01:30→16:13)
[2018-09-19] MEDS: ACCU-CHEK XX SCH (02:00)
[2018-09-19] MEDS: INSULIN ASPART [NOVOLOG] 3 ML PEN SC SCH ×6 (08:03→20:52)
[2018-09-19] MEDS: INSULIN DETEMIR [LEVEMIR] (100 UNITS/ML) SYG SC SCH (08:28)
--- NOTE | 2018-09-19 09:11 | QN ---
Documentation Comment Postoperative day #1 Temperature 100.4. T-max 100.7 Patient is markedly symptomatically improved Abdominal examination is benign Plan: Continue medical management Might be able to discharge tomorrow NINA KAYE MD Sep 19, 2018 09:11
[2018-09-19] MEDS ORDERED: ACETAMINOPHEN 325 MG TAB PO PRN (11:00)
--- NOTE | 2018-09-19 11:57 | PN ---
Date/Time of Note Date/Time of Note DATE: 09/19/18 TIME: 11:56 Assessment/Plan VTE Prophylaxis Risk score (from Ns)>0 risk: 2 SCD applied (from Ns): Yes Pharmacological prophylaxis: NA/contraindicated Pharm contraindication: low risk/ambulating Lines/Catheters [facility]from [facility] Peripheral IV Assessment/Plan Hospital Course SUBJECTIVE: Lying in bed comfortably. Having low-grade fevers. Abdomen slightly distended, no pain. Patient reports passing flatus, no bowel movements yet. OBJECTIVE: Vital signs-see below PHYSICAL EXAM: Constitutional: obese male, lying in bed comfortably. Psych: nl mood/affect, no complaints Head: atraumatic, normocephalic Eyes: nl conjunctiva, nl sclera ENMT: mucosa pink and moist, nl external ears & nose Neck: non-tender, supple Respiratory: clear to auscultation, normal air movement Cardiovascular: nl pulses, regular rate and rhythm Gastrointestinal: Slightly distended, no tenderness. Incision site with drainage circled on dressing.no rebound tenderness. Hypoactive bowel sounds. Musculoskeletal/extremities: nl extremities to inspection, motor strength equal bilaterally, no focal deficit. Normal pulses,no cyanosis, no edema. Neurological: Alert oriented 3,nl speech, nl strength Skin: nl turgor ASSESSMENT/PLAN: 43-year-old male admitted with acute appendicitis, underwent laparoscopic converted to open appendectomy. 1. Acute appendicitis with localized peritonitis -Status post laparoscopic, converted to open appendectomy 09/18/2018, POD #1 -Postoperative diet, antibiotic course per surgery. 2. Sepsis secondary to #1 -Continue Zosyn. Blood culture 1 set growing gram-negative rods. -We will repeat another set and will follow up on final cultures. 3. New onset type 2 diabetes -A1c noted. Continue Accu-Cheks/Lantus/ISS. We will also add pre-meal insulin. -Carbohydrate controlled diet, diabetic education -We will keep patient on metformin twice a day on discharge. 4. Mild triglyceridemia -Fish oil supplementation. Lifestyle changes/weight reduction/diet changes advised. 5. Obesity with BMI 34.6. -Again, lifestyle changes advised. DVT prophylaxis: SCDs PUD prophylaxis: Pepcid CODE STATUS: Full code Diet: Advancement per surgery. Disposition: Continue current management. Follow-up surgery recommendations. Patient was seen in collaboration with Dr. Alba Result Diagram: 09/19/18 0559 09/19/18 0559 Results 24hrs Laboratory Tests Test 09/18/18 11:59 09/18/18 14:06 09/18/18 16:34 09/18/18 21:15 Bedside Glucose 246 H 252 H 219 199 Test 09/19/18 02:11 09/19/18 05:59 09/19/18 07:56 Bedside Glucose 194 212 White Blood Count 9.3 # Red Blood Count 4.37 L Hemoglobin 12.7 L Hematocrit 37.5 L Mean Corpuscular Volume 85.8 Mean Corpuscular 29.1 Hemoglobin Mean Corpuscular 33.9 Hemoglobin Concent Red Cell Distribution 13.2 Width Platelet Count 210 # Mean Platelet Volume 9.7 Immature Granulocytes % 0.400 Neutrophils % Segmented Neutrophils 61 % (Manual) Band Neutrophils % 14 H (Manual) Lymphocytes % Lymphocytes % (Manual) 17 Monocytes % Monocytes % (Manual) 5 Eosinophils % Basophils % Metamyelocytes % 2 H (manual) Myelocytes % (Manual) 1 H Nucleated Red Blood 0.0 Cells % Immature Granulocytes # 0.040 H Neutrophils # Neutrophils # (Manual) 5.8 Band Neutrophils # 1.3 H Lymphocytes (Manual) 1.5 Lymphocytes # Monocytes # Monocytes # (Manual) 0.4 Eosinophils # Basophils # Metamyelocytes # 0.1 H Myelocytes # 0.0 Nucleated Red Blood Cells # Platelet Estimate NORMAL Sodium Level 137 Potassium Level 3.3 L Chloride Level 101 Carbon Dioxide Level 26 Anion Gap 10 # Blood Urea Nitrogen 8 Creatinine 0.97 Est Glomerular Filtrat > 60 Rate mL/min Glucose Level 194 # Hemoglobin A1c 9.7 H Calcium Level 7.9 L Phosphorus Level 2.4 L Magnesium Level 1.6 L Total Bilirubin 0.9 Direct Bilirubin 0.00 Indirect Bilirubin 0.9 Aspartate Amino 24 Transf (AST/SGOT) Alanine 27 Aminotransferase (ALT/SG PT) Alkaline Phosphatase 62 Total Protein 6.5 # Albumin 3.2 #L Globulin 3.30 H Albumin/Globulin Ratio 0.96 Triglycerides Level 192 H Cholesterol Level 139 LDL Cholesterol, 76 Calculated HDL Cholesterol 25 L Cholesterol/HDL Ratio 5.5 Exam/Review of Systems Exam Vitals Vital Signs Date Temp Pulse Resp B/P (MAP) Pulse Ox O2 O2 Flow FiO2 Time Delivery Rate 09/19/18 100.1 108 19 120/82 95 11:33 (95) 09/18/18 Nasal 2.0 21:00 Cannula Intake and Output 09/18/18 09/18/18 09/19/18 1414:59 22:59 06:59 IntakeIntake Total 2500 ml 450 ml OutputOutput Total 10 ml BalanceBalance 2490 ml 450 ml Results Results 24hrs Laboratory Tests Test 09/18/18 11:59 09/18/18 14:06 09/18/18 16:34 09/18/18 21:15 Bedside Glucose 246 H 252 H 219 199 Test 09/19/18 02:11 09/19/18 05:59 09/19/18 07:56 Bedside Glucose 194 212 White Blood Count 9.3 # Red Blood Count 4.37 L Hemoglobin 12.7 L Hematocrit 37.5 L Mean Corpuscular Volume 85.8 Mean Corpuscular 29.1 Hemoglobin Mean Corpuscular 33.9 Hemoglobin Concent Red Cell Distribution 13.2 Width Platelet Count 210 # Mean Platelet Volume 9.7 Immature Granulocytes % 0.400 Neutrophils % Segmented Neutrophils 61 % (Manual) Band Neutrophils % 14 H (Manual) Lymphocytes % Lymphocytes % (Manual) 17 Monocytes % Monocytes % (Manual) 5 Eosinophils % Basophils % Metamyelocytes % 2 H (manual) Myelocytes % (Manual) 1 H Nucleated Red Blood 0.0 Cells % Immature Granulocytes # 0.040 H Neutrophils # Neutrophils # (Manual) 5.8 Band Neutrophils # 1.3 H Lymphocytes (Manual) 1.5 Lymphocytes # Monocytes # Monocytes # (Manual) 0.4 Eosinophils # Basophils # Metamyelocytes # 0.1 H Myelocytes # 0.0 Nucleated Red Blood Cells # Platelet Estimate NORMAL Sodium Level 137 Potassium Level 3.3 L Chloride Level 101 Carbon Dioxide Level 26 Anion Gap 10 # Blood Urea Nitrogen 8 Creatinine 0.97 Est Glomerular Filtrat > 60 Rate mL/min Glucose Level 194 # Hemoglobin A1c 9.7 H Calcium Level 7.9 L Phosphorus Level 2.4 L Magnesium Level 1.6 L Total Bilirubin 0.9 Direct Bilirubin 0.00 Indirect Bilirubin 0.9 Aspartate Amino 24 Transf (AST/SGOT) Alanine 27 Aminotransferase (ALT/SG PT) Alkaline Phosphatase 62 Total Protein 6.5 # Albumin 3.2 #L Globulin 3.30 H Albumin/Globulin Ratio 0.96 Triglycerides Level 192 H Cholesterol Level 139 LDL Cholesterol, 76 Calculated HDL Cholesterol 25 L Cholesterol/HDL Ratio 5.5 Medications Medication Current Medications IV Flush (NS 3 ml) 3 ml PER PROTOCOL IV ; Start 09/18/18 at 06:30 Ondansetron HCl (Zofran Inj) 4 mg Q6H PRN IV NAUSEA/VOMITING Last administered on 09/18/18 09:30; Admin Dose 4 MG; Start 09/18/18 at 06:30 Morphine Sulfate (morphine) 2 mg Q4H PRN IV .SEVERE PAIN 7-10 Last administered on 09/19/18 01:28; Admin Dose 2 MG; Start 09/18/18 at 06:30 Albuterol/ Ipratropium (Duoneb) 3 ml Q2H RESP THERAPY PRN HHN SHORTNESS OF BREATH; Start 09/18/18 at 06:30 Diagnostic Test (Pha) (Accu-Chek) 1 ea 02 XX Last administered on 09/19/18at 02:00; Admin Dose 1 EA; Start 09/19/18 at 02:00 Insulin Detemir (Levemir) 12 units DAILY@0800 SC Last administered on 09/19/18 08:28; Admin Dose 12 UNITS; Start 09/18/18 at 08:00 Insulin Aspart (Novolog Insulin Pen) NOVOLOG *MILD* ALGORITHM WITH MEALS BEDTIME SC Last administered on 09/19/18 08:03; Admin Dose 2 UNIT; Start 09/18/18 at 07:55 Piperacillin Sod/ Tazobactam Sod 100 ml @ 200 mls/hr Q6H IVPB Last administered on 09/19/18 06:49; Admin Dose 200 MLS/HR; Start 09/18/18 at 06:30 Miscellaneous Information 1 ea NOTE XX ; Start 09/18/18 at 07:00 Glucose (Glutose) 15 gm Q15M PRN PO DECREASED GLUCOSE; Start 09/18/18 at 07:00 Glucose (Glutose) 22.5 gm Q15M PRN PO DECREASED GLUCOSE; Start 09/18/18 at 07:00 Dextrose (D50w Syringe) 25 ml Q15M PRN IV DECREASED GLUCOSE; Start 09/18/18 at 07:00 Dextrose (D50w Syringe) 50 ml Q15M PRN IV DECREASED GLUCOSE; Start 09/18/18 at 07:00 Glucagon (Glucagen) 1 mg Q15M PRN IM DECREASED GLUCOSE; Start 09/18/18 at 07:00 Glucose (Glutose) 15 gm Q15M PRN BUCCAL DECREASED GLUCOSE; Start 09/18/18 at 07:00 Oxycodone/ Acetaminophen (Percocet (5/ 325)) 1 tab Q4H PRN PO .MILD PAIN (1-3); Start 09/18/18 at 14:00 Oxycodone/ Acetaminophen (Percocet (5/ 325)) 2 tab Q4H PRN PO .MODERATE PAIN (4-6); Start 09/18/18 at 14:00 Ondansetron HCl (Zofran Inj) 4 mg Q6H PRN IV NAUSEA/VOMITING; Start 09/18/18 at 14:00 Sodium Chloride 1,000 ml @ 100 mls/hr Q10H IV Last administered on 09/19/18at 01:30; Admin Dose 100 MLS/HR; Start 09/18/18 at 15:30 Acetaminophen (Tylenol Tab) 650 mg Q6H PRN PO MILD PAIN(1-3)OR ELEVATED TEMP; Start 09/19/18 at 11:00 Insulin Aspart (Novolog Insulin Pen) 5 unit WITH MEALS SC ; Start 09/19/18 at 11:50; Status UNV Potassium Chloride (Klor-Con 20) 20 meq ONCE STAT PO ; Start 09/19/18 at 11:38; Stop 09/19/18 at 11:39; Status UNV KORIN AJMES NP Sep 19, 2018 11:57
[2018-09-19] MEDS ORDERED: DOCUSATE SODIUM 100 MG CAP PO PRN (12:00)
[2018-09-19] MEDS ORDERED: POTASSIUM CHLORIDE (SR) 20 MEQ TAB PO SCH (12:15)
[2018-09-19] MEDS: FAMOTIDINE 20 MG TAB PO SCH (20:34)
[2018-09-19] MEDS ORDERED: morphine LIQ (10 MG/5 ML) CUP PO PRN (23:30)
[2018-09-20] VITALS (10 sets, daily range): BP systolic 123–143; BP diastolic 68–81; PULSE 73–119; RESP 17–20
[2018-09-20] MEDS: PIPER-TAZO 3.375 GM IV (PMX) 100 ML IVPB SCH ×2 (00:33→05:49)
[2018-09-20] MEDS: ACCU-CHEK XX SCH (02:36)
[2018-09-20] MEDS: SOD CHLORIDE 0.9% 1,000 ML IV SCH (05:49)
--- NOTE | 2018-09-20 06:42 | QN ---
Documentation Comment Postoperative day #2 Afebrile throughout Continued symptomatic improvement Dressings are clean No bowel function yet Plan: NINA Forde MD Sep 20, 2018 06:42
[2018-09-20] MEDS ORDERED: BISACODYL (EC) 5 MG TAB PO ONE (07:00)
[2018-09-20] MEDS: INSULIN ASPART [NOVOLOG] 3 ML PEN SC SCH ×7 (08:09→20:27)
[2018-09-20] MEDS: INSULIN DETEMIR [LEVEMIR] (100 UNITS/ML) SYG SC SCH (08:10)
--- NOTE | 2018-09-20 12:44 | PN ---
Date/Time of Note Date/Time of Note DATE: 09/20/18 TIME: 12:42 Assessment/Plan VTE Prophylaxis Risk score (from Ns)>0 risk: 2 SCD applied (from Ns): Yes Pharmacological prophylaxis: NA/contraindicated Pharm contraindication: surgical contra Lines/Catheters IV [facility] Saline Lock Assessment/Plan Hospital Course SUBJECTIVE: Tolerating full liquid diet. No bowel movements. OBJECTIVE: Vital signs-see below PHYSICAL EXAM: Constitutional: obese male, lying in bed comfortably. Psych: nl mood/affect, no complaints Head: atraumatic, normocephalic Eyes: nl conjunctiva, nl sclera ENMT: mucosa pink and moist, nl external ears & nose Neck: non-tender, supple Respiratory: clear to auscultation, normal air movement Cardiovascular: nl pulses, regular rate and rhythm Gastrointestinal: Slightly distended, no tenderness. Incision site with drainage circled on dressing.no rebound tenderness. Bowel sounds active in all 4 quadrants. Musculoskeletal/extremities: nl extremities to inspection, motor strength equal bilaterally, no focal deficit. Normal pulses,no cyanosis, no edema. Neurological: Alert oriented 3,nl speech, nl strength Skin: nl turgor ASSESSMENT/PLAN: 43-year-old male admitted with acute appendicitis, underwent laparoscopic converted to open appendectomy. 1. Acute appendicitis with localized peritonitis -Status post laparoscopic, converted to open appendectomy 09/18/2018, POD #2 -Advance diet per surgical recommendations. -Encourage ambulation and incentive spirometry. 2. Sepsis secondary to #1 -Resolving. Blood culture 1 out of 2 sets grew Klebsiella pneumonia sensitive to fluoroquinolone. -De-escalate antibiotic to Cipro and Flagyl combination. 3. New onset type 2 diabetes -A1c noted. Continue Accu-Cheks/Lantus/ISS/ pre-meal insulin. -Carbohydrate controlled diet, diabetic education -We will keep patient on metformin twice a day on discharge. 4. Mild triglyceridemia -Fish oil supplementation. Lifestyle changes/weight reduction/diet changes advised. 5. Obesity with BMI 34.6. -Again, lifestyle changes advised. DVT prophylaxis: SCDs PUD prophylaxis: Pepcid CODE STATUS: Full code Diet: Advancement per surgery. Disposition: Downgrade patient to medical surgical floor. Follow-up surgery recommendations. Patient was seen in collaboration with Dr. Alba Result Diagram: 09/20/18 0757 09/20/18 0757 Results 24hrs Laboratory Tests Test 09/19/18 17:03 09/19/18 20:33 09/20/18 02:19 09/20/18 07:57 Bedside Glucose 150 202 177 178 White Blood Count 9.4 Red Blood Count 4.48 L Hemoglobin 13.0 L Hematocrit 37.6 L Mean Corpuscular Volume 83.9 Mean Corpuscular 29.0 Hemoglobin Mean Corpuscular 34.6 Hemoglobin Concent Red Cell Distribution 13.2 Width Platelet Count 210 Mean Platelet Volume 9.3 Immature Granulocytes % 0.400 Neutrophils % 77.9 H Lymphocytes % 14.8 L Monocytes % 6.4 Eosinophils % 0.3 Basophils % 0.2 Nucleated Red Blood 0.0 Cells % Immature Granulocytes # 0.040 H Neutrophils # 7.4 Lymphocytes # 1.4 Monocytes # 0.6 Eosinophils # 0.0 Basophils # 0.0 Nucleated Red Blood 0.0 Cells # Sodium Level 139 Potassium Level 3.6 Chloride Level 104 Carbon Dioxide Level 26 Anion Gap 9 Blood Urea Nitrogen 11 Creatinine 0.75 Est Glomerular Filtrat > 60 Rate mL/min Glucose Level 187 Calcium Level 8.4 Test 09/20/18 12:24 Bedside Glucose 197 Exam/Review of Systems Exam Vitals Vital Signs Date Temp Pulse Resp B/P (MAP) Pulse Ox O2 O2 Flow FiO2 Time Delivery Rate 09/20/18 73 12:33 09/20/18 98.3 18 123/77 97 11:17 (92) 09/18/18 Nasal 2.0 21:00 Cannula Intake and Output 09/19/18 09/19/18 09/20/18 1515:00 23:00 07:00 IntakeIntake Total 800 ml 1350 ml OutputOutput Total 1100 ml BalanceBalance -300 ml 1350 ml Results Results 24hrs Laboratory Tests Test 09/19/18 17:03 09/19/18 20:33 09/20/18 02:19 09/20/18 07:57 Bedside Glucose 150 202 177 178 White Blood Count 9.4 Red Blood Count 4.48 L Hemoglobin 13.0 L Hematocrit 37.6 L Mean Corpuscular Volume 83.9 Mean Corpuscular 29.0 Hemoglobin Mean Corpuscular 34.6 Hemoglobin Concent Red Cell Distribution 13.2 Width Platelet Count 210 Mean Platelet Volume 9.3 Immature Granulocytes % 0.400 Neutrophils % 77.9 H Lymphocytes % 14.8 L Monocytes % 6.4 Eosinophils % 0.3 Basophils % 0.2 Nucleated Red Blood 0.0 Cells % Immature Granulocytes # 0.040 H Neutrophils # 7.4 Lymphocytes # 1.4 Monocytes # 0.6 Eosinophils # 0.0 Basophils # 0.0 Nucleated Red Blood 0.0 Cells # Sodium Level 139 Potassium Level 3.6 Chloride Level 104 Carbon Dioxide Level 26 Anion Gap 9 Blood Urea Nitrogen 11 Creatinine 0.75 Est Glomerular Filtrat > 60 Rate mL/min Glucose Level 187 Calcium Level 8.4 Test 09/20/18 12:24 Bedside Glucose 197 Medications Medication Current Medications IV Flush (NS 3 ml) 3 ml PER PROTOCOL IV ; Start 09/18/18 at 06:30 Ondansetron HCl (Zofran Inj) 4 mg Q6H PRN IV NAUSEA/VOMITING Last administered on 09/18/18 09:30; Admin Dose 4 MG; Start 09/18/18 at 06:30 Albuterol/ Ipratropium (Duoneb) 3 ml Q2H RESP THERAPY PRN HHN SHORTNESS OF BREATH; Start 09/18/18 at 06:30 Diagnostic Test (Pha) (Accu-Chek) 1 ea 02 XX Last administered on 09/20/18at 02:36; Admin Dose 1 EA; Start 09/19/18 at 02:00 Insulin Detemir (Levemir) 12 units DAILY@0800 SC Last administered on 09/20/18 08:10; Admin Dose 12 UNITS; Start 09/18/18 at 08:00 Insulin Aspart (Novolog Insulin Pen) NOVOLOG *MILD* ALGORITHM WITH MEALS BEDTIME SC Last administered on 09/20/18 08:09; Admin Dose 1 UNIT; Start 09/18/18 at 07:55 Piperacillin Sod/ Tazobactam Sod 100 ml @ 200 mls/hr Q6H IVPB Last administered on 09/20/18at 05:49; Admin Dose 200 MLS/HR; Start 09/18/18 at 06:30 Miscellaneous Information 1 ea NOTE XX ; Start 09/18/18 at 07:00 Glucose (Glutose) 15 gm Q15M PRN PO DECREASED GLUCOSE; Start 09/18/18 at 07:00 Glucose (Glutose) 22.5 gm Q15M PRN PO DECREASED GLUCOSE; Start 09/18/18 at 07:00 Dextrose (D50w Syringe) 25 ml Q15M PRN IV DECREASED GLUCOSE; Start 09/18/18 at 07:00 Dextrose (D50w Syringe) 50 ml Q15M PRN IV DECREASED GLUCOSE; Start 09/18/18 at 07:00 Glucagon (Glucagen) 1 mg Q15M PRN IM DECREASED GLUCOSE; Start 09/18/18 at 07:00 Glucose (Glutose) 15 gm Q15M PRN BUCCAL DECREASED GLUCOSE; Start 09/18/18 at 07:00 Oxycodone/ Acetaminophen (Percocet (5/ 325)) 1 tab Q4H PRN PO .MILD PAIN (1-3); Start 09/18/18 at 14:00 Oxycodone/ Acetaminophen (Percocet (5/ 325)) 2 tab Q4H PRN PO .MODERATE PAIN (4-6) Last administered on 09/20/18at 00:33; Admin Dose 2 TAB; Start 09/18/18 at 14:00 Ondansetron HCl (Zofran Inj) 4 mg Q6H PRN IV NAUSEA/VOMITING; Start 09/18/18 at 14:00 Sodium Chloride 1,000 ml @ 100 mls/hr Q10H IV Last administered on 09/20/18 05:49; Admin Dose 100 MLS/HR; Start 09/18/18 at 15:30 Acetaminophen (Tylenol Tab) 650 mg Q6H PRN PO MILD PAIN(1-3)OR ELEVATED TEMP Last administered on 09/19/18at 12:10; Admin Dose 650 MG; Start 09/19/18 at 11:00 Insulin Aspart (Novolog Insulin Pen) 5 unit WITH MEALS SC Last administered on 09/20/18 08:09; Admin Dose 5 UNIT; Start 09/19/18 at 11:50 Famotidine (Pepcid) 20 mg HS PO Last administered on 09/19/18 20:34; Admin Dose 20 MG; Start 09/19/18 at 21:00 Simethicone (Mylicon) 160 mg Q6 PO Last administered on 09/20/18 05:49; Admin Dose 160 MG; Start 09/19/18 at 12:00 Docusate Sodium (Colace) 200 mg BID PRN PO CONSTIPATION Last administered on 3/5/19at 17:03; Admin Dose 200 MG; Start 09/19/18 at 12:00 Morphine Sulfate (morphine) 6 mg Q4H PRN PO SEVERE PAIN LEVEL 7-10; Start 09/19/18 at 23:30 KORIN JAMES NP Sep 20, 2018 12:44
[2018-09-20] MEDS: metroNIDAZOLE 500 MG/NS (PMX) 100 ML IVPB SCH ×2 (13:57→22:04)
[2018-09-20] MEDS: FAMOTIDINE 20 MG TAB PO SCH (20:17)
[2018-09-20] MEDS: CIPROFLOXACIN 400MG/D5W 200 ML IVPB SCH (21:01)
[2018-09-21] VITALS: BP 133/75; PULSE 99; RESP 20
[2018-09-21] MEDS: ACCU-CHEK XX SCH (01:22)
[2018-09-21] MEDS: metroNIDAZOLE 500 MG/NS (PMX) 100 ML IVPB SCH (05:44)
[2018-09-21 07:31] VITALS: BP 126/71; PULSE 78; RESP 18
--- NOTE | 2018-09-21 08:04 | QN ---
Documentation Comment Postoperative day #3 Afebrile throughout. Continued symptomatic improvement Abdominal examination is benign. Passing large amounts of flatus and tolerating p.o. WBC normal Plan: Can discharge home with po pain medications and antibiotics. Will see in office in 1 week for staple removal NINA KAYE MD Sep 21, 2018 08:04
[2018-09-21] MEDS: INSULIN ASPART [NOVOLOG] 3 ML PEN SC SCH ×4 (08:42→12:56)
--- NOTE | 2018-09-21 08:43 | PDOCDIS ---
Discharge Instructions CONDITION [id number] Patient Condition: [id number] Stable HOME CARE INSTRUCTIONS: [id number] Your diet recommendation is: [id number] carbohydrate controlled. advance to soft diet FOLLOW UP/APPOINTMENTS Follow-up Plan Follow-up with Dr. Mack in 1 week in his clinic for staple removal. [id number] [phone] Office Follow-up with primary care physician in 1 week Post operative Instructions *Do not lift anything more than 25 pounds for 6 to 8 weeks *Do not swim or take hot tub bath for 2weeks *Remove dressing and May shower-Use mild soap around site and pat dry *If you notice any oozing, bleeding or other drainage or having fever or chills from site please contact Surgeon's office-If unable to get office, you may go to nearest emergency room KORIN JAMES NP Sep 21, 2018 08:43
[2018-09-21] MEDS: INSULIN DETEMIR [LEVEMIR] (100 UNITS/ML) SYG SC SCH (08:44)
[2018-09-21] MEDS ORDERED: HYDR-4011 PO (08:46)
[2018-09-21] MEDS ORDERED: METR-122 PO (08:46)
[2018-09-21] MEDS ORDERED: METF-849 PO (08:46)
[2018-09-21] MEDS ORDERED: CIPR500T4 PO (08:46)
--- NOTE | 2018-09-21 09:26 | DS ---
Date/Time of Note Date/Time of Note DATE: 09/21/18 TIME: 09:24 Discharge Summary Admission/Discharge Info Admit Date/Time Sep 18, 2018 at 02:25 Discharge Date/Time Discharge Diagnosis 1. Acute appendicitis with localized peritonitis.s/p lap converted to open a ppendectomy 2. s/p Sepsis secondary to #1 3. New onset type 2 diabetes 4. Mild triglyceridemia 5. Obesity with BMI 34.6. Patient Condition: Stable Consults Dr. Main, surgeon Procedures 09/18/2018. CT abdomen and pelvis. IMPRESSION: Appendicitis. Fatty infiltration of the liver. A call report was made to Dr. Bernal at 02:20 a.m. 09/18/2018. Laparoscopic converted to open appendectomy. Surgeon Dr. Main Hospital Course 43-year-old male admitted with acute appendicitis and sepsis secondary to that, underwent laparoscopic converted to open appendectomy on 09/18/2018. There was evidence of localized peritonitis. Patient did well postoperatively. He grew Klebsiella pneumonia and one set of blood culture and was continued on appropriate antimicrobial. Repeat cultures negative. Postoperatively, he was able to tolerate diet and activities well. Sepsis resolved. He was continued on fish oil supplementation for underlying mild triglyceridemia with the reduction/diet changes advised. He was also noted for new onset type 2 diabetes for which he was managed with insulin and had diabetic education. He was maintained on a carbohydrate controlled diet with eventual recommendation of metformin on discharge. At this time, patient is cleared from a surgical standpoint for outpatient follow-up. Surgical site clean/dry/intact. Stable labs and vital signs. Patient to follow-up with surgeons clinic in 1 week for staple removal. Patient verbalized understanding. Approximately 60 m spent on coordinating the discharge on this patient. Patient was seen in collaboration with [facility] Active Scripts Metronidazole* (Metronidazole*) 500 Mg Tablet, 500 MG PO Q8 for 7 Days, #21 TAB Prov:JAMES,KORIN V. LICENSED OPTICIAN 09/21/18 Ciprofloxacin Hcl* (Ciprofloxacin Hcl*) 500 Mg Tablet, 500 MG PO BID, #14 TAB Prov:JAMES,KORIN V. LICENSED OPTICIAN 09/21/18 Metformin* (Glucophage*) 500 Mg Tab, 500 MG PO WITH BREAKFAST DINNE, #60 TAB Prov:JAMESHAYDERKORINMOSES Iglesias LICENSED OPTICIAN 09/21/18 Reported Medications Ibuprofen* (Advil*) 200 Mg Capsule, 200 MG PO Q6H PRN for PAIN, CAP 09/18/18 Discontinued Scripts Benzonatate* (Tessalon Perle*) 100 Mg Capsule, 100 MG PO Q8H PRN for COUGH, #20 CAP Prov:NASIM MIGUEL PA-C 07/08/16 Roddgzqlpyv-Q-Juqrfkvjgh Hb* (Guaifenesin* DM Syrup) 120 Ml Syrup, 10 ML PO Q4H PRN for COUGH, #120 ML Prov:NASIM MIGUEL PA-C 07/08/16 Follow-up Plan Follow-up with Dr. Mack in 1 week in his clinic for staple removal. [address] [facility] [address] [place] [address] Office Follow-up with primary care physician in 1 week Post operative Instructions *Do not lift anything more than 25 pounds for 6 to 8 weeks *Do not swim or take hot tub bath for 2weeks *Remove dressing and May shower-Use mild soap around site and pat dry *If you notice any oozing, bleeding or other drainage or having fever or chills from site please contact Surgeon's office-If unable to get office, you may go to nearest emergency room Primary Care Provider Care Physician No Primary Pending Labs Laboratory Tests Test 09/20/18 12:24 09/20/18 17:35 09/20/18 20:24 09/21/18 01:21 Bedside 197 181 183 208 Glucose mg/dL (70-220) mg/dL (70-220) mg/dL (70-220) mg/dL (70-220) Test 09/21/18 04:49 09/21/18 08:38 White Blood 7.8 Count 10^3/ul (4.8-10 .8) Red Blood 4.48 Count 10^6/ul (4.70-6 .10) Hemoglobin 13.0 g/dl (14.0-18.0 ) Hematocrit 38.2 % (42.0-52.0) Mean 85.3 Corpuscular fl (82.0-101.0) Volume Mean 29.0 Corpuscular pg (29.0-33.0) Hemoglobin Mean 34.0 Corpuscular g/dl (32.0-37.0 Hemoglobin Conc ) ent Red Cell 12.7 Distribution % (11.5-14.5) Width Platelet Count 235 10^3/UL (140-41 5) Mean Platelet 9.4 Volume fl (7.4-10.4) Immature 0.500 Granulocytes % % (0.001-0.429) Neutrophils % 74.2 % (39.0-77.0) Lymphocytes % 17.9 % (15.0-51.0) Monocytes % 6.6 % (0.0-11.0) Eosinophils % 0.5 % (0.0-7.0) Basophils % 0.3 % (0.0-2.0) Nucleated Red 0.0 Blood Cells % /100WBC (0.0-0. 0) Immature 0.040 Granulocytes # 10^3/ul (0.0-0. 031) Neutrophils # 5.8 10^3/ul (1.6-7. 5) Lymphocytes # 1.4 10^3/ul (0.8-2. 9) Monocytes # 0.5 10^3/ul (0.3-0. 9) Eosinophils # 0.0 10^3/ul (0.0-0. 5) Basophils # 0.0 10^3/ul (0.0-0. 1) Nucleated Red 0.0 Blood Cells # 10^3/ul (0.0-0. 0) Bedside 188 Glucose mg/dL (70-220) KORIN JAMES NP Sep 21, 2018 09:26
[2018-09-21] MEDS ORDERED: DOCU-144 PO (09:27)
[2018-09-21] MEDS: CIPROFLOXACIN 400MG/D5W 200 ML IVPB SCH (10:17)
[2018-09-21] MEDS ORDERED: GLUCOMETER (13:55)
== END 2018-09-21 15:10 | disposition home or self-care (01) | DRG 854 ==
LOC: E/R 00:17 → TEL 02:25 → CANRESERV 03:13 → EDBEDREQSVC 05:14 → EDBEDREQ 05:14 → MS1 09-20 14:21
PROVIDERS: ADMIT Internal Medicine; ATTEND Internal Medicine
PROC: 0DJD4ZZ Inspection of Lower Intestinal Tract, Percutaneous Endoscopic Approach (ICD-10-PCS; 2018-09-18)
PROC: 0DTJ0ZZ Resection of Appendix, Open Approach (ICD-10-PCS; principal; 2018-09-18 12:00)
DX: A41.9 Sepsis, unspecified organism (principal); K35.30 Acute appendicitis with localized peritonitis, without perforation or gangrene; E11.65 Type 2 diabetes mellitus with hyperglycemia; E66.9 Obesity, unspecified; Z68.34 Body mass index [BMI] 34.0-34.9, adult; Z53.31 Laparoscopic surgical procedure converted to open procedure
CPT/HCPCS: 36415; 71045; 74176; 80048; 80053; 80061; 81003; 82962; 83036; 83605; 83690; 83735; 84100; 84484; 85025; 85610; 85730; 87040; 87081; 87086; 88304; 90686; 93005; 96374; 96375; J0692; J0744; J1170; J1815; J2175; J2270; J2370; J2405; J2543; J2710; J2765; J3010; J3370; J7030; J7042